=== PATIENT | male | born 1990 | race Caucasian/White ===

== ENCOUNTER 2017-09-17 21:50 | Observation (INO) | payer OTHER ==
[2017-09-17] MEDS ORDERED: ADRENALINE CHL INJ IVP ONE (21:51)
[2017-09-17] MEDS ORDERED: SOLU-Medrol 125 MG VIAL ONE (21:51)
[2017-09-17] MEDS ORDERED: ADRENALINE CHL INJ ONE (21:51)
[2017-09-17] MEDS ORDERED: SOLU-Medrol 125 MG VIAL IVP ONE (21:52)
[2017-09-17] MEDS ORDERED: ZANTAC INJ 50 MG in NS 50 ML IV 50 ML IV ONE (22:00)
[2017-09-17] MEDS ORDERED: BENADRYL INJ 50 MG VIAL IVP ONE (22:01)
[2017-09-17] MEDS ORDERED: ZANTAC INJ ONE (22:03)
--- NOTE | 2017-09-17 22:13 | DR.ALLERGY ---
HPI - Time Seen Time seen: 22:30 - HPI Comment HPI Comment: EMS reports that patient took a dose of his basilio augmentin and had an allergic reaction with shortness of breath and became cyanotic. Kristopher reports that patient went to bath room and started to take a shower after taking the augmentin and he fell backward in less than three minutes. His body was shaking all over, he was unresponsive to commands. This lasted approximately two to three minutes. Patient had bowel movement on himself x 2 according to spouse. Spousal history was taken some fifteen to twenty after arrival. Patient was not sure as to what had happened. He was pale upon arrival. History of EMS was patient had had an allergic reaction to augment. Patient was treated accordingly (epinephrine,ranitidine,solu medrol,benadryl) NS. After spousal history a CT of brain obtained; read as normal. He is being admitted for further evaluation due to first time seizure. PMH - Social History Lives With: Spouse Lives Where: Home ROS - Review of Systems Eyes: No Symptoms Reported ENTM: No Symptoms Reported Respiratoy: No Symptoms Reported Cardiovascular: No Symptoms Reported Gastrointestinal/Abdominal: No Symptoms Reported Genitourinary: No Symptoms Reported Neurological: No Symptoms Reported Musculoskeletal: No Symptoms Reported Integumentary: No Symptoms Reported Hematologic/Lymphatic: No Symptoms Reported Endocrine: No Symptoms Reported Psychiatric: No Symptoms Reported All Other Systems: Reviewed and Negative PE - Vitals Vital Signs: Temp Pulse Pulse Resp BP BP Pulse Ox 09/17/17 23:34 73 16 105/57 99 09/17/17 23:22 75 18 111/61 100 09/17/17 22:49 96.6 F L 99 H 22 149/63 99 09/17/17 22:30 67 16 117/68 98 09/17/17 22:20 67 16 111/64 97 09/17/17 22:10 74 18 116/62 98 09/17/17 22:04 80 16 113/58 99 - Constitutional General Appearance: Alert, Obtunded - Head Head Exam: Normal Inspection, Atraumatic - Eyes Eye exam: Normal Appearance, PERRL, EOMI - ENT ENT Exam: Normal Exam Mouth Exam: Normal Inspection, Drooling Throat Exam: Normal Inspection - Neck Neck Exam: Normal Inspection, Full ROM - Chest Chest Inspection: Normal Inspection - Respiratory Respiratory Exam: Normal Lung Sounds Bilat Respiratory Exam: Bilateral Clear to Auscultation - Cardiovascular Cardiovascular Exam: Regular Rate, Normal Rhythm - Abdominal Exam Abdominal Exam: Normal Inspection Abdominal Tenderness: negative: RUQ, RLQ, LUQ, LLQ, Epigastrium, Suprapubic, Diffuse, Mild, Moderate, Severe, Other - Extremities Extremities Exam: Normal Inspection, Full ROM - Back Back Exam: Normal Inspection, Full ROM - Neurologic Neurological Exam: Alert, Oriented X3, CN II-XII Intact - Psychiatric Psychiatric Exam: Normal Affect - Skin Skin Exam: Warm, Dry, Intact Type of Lesion: negative: Rash, Abscess, Laceration, Foreign Body, Bite/Sting, Abrasion, Other Course - Reevaluation 1st: Improved ROR - Labs Reviewed Result Diagrams: 09/17/17 23:32 09/17/17 23:32 - XRAY XRAY Interpreted by: Radiologist (CT Brain: There is no acute intracranial hemorrhage, mass or mass effect. No extra axial fluid collection or abnormal area of hypoattenuation identified. Ventricles and sulci are normal. ImpressinP No acute intracranial hemorrhage.) - Diagnosis Discharge Problem: Seizure - Discharge Plan Condition: Stable - Follow ups/Referrals Follow ups/Referrals: NFD,None [Primary Care Provider] - 3 days - Instructions
[2017-09-17] MEDS: NS 1000 ML 1,000 ML IV SCH (22:26)
--- NOTE | 2017-09-17 22:59 | CT ---
CT head without contrast Indication: New onset seizure. Technique: Axial images from the skullbase to the vertex without contrast. Coronal and sagittal ref ormats provided. Findings: Review of bone windows shows no osseous lesion. Paranasal sinuses and mastoid air cells a re clear. There is no acute intracranial hemorrhage, mass or mass effect. No extra-axial fluid collection or a bnormal area of hypoattenuation identified. Ventricles and sulci are normal. Impression: No acute intracranial hemorrhage Reported By:
[2017-09-17 23:56] LABS: BASOPHILS % (AUTO) 0.1 % (0.2-1.0); EOSINOPHILS # (AUTO) 0.1 x10^3/uL (0.0-0.2); EOSINOPHILS % (AUTO) 0.6 % (0.9-2.9); HEMATOCRIT 53.3 % (42.0-54.0); LYMPHOCYTES # (AUTO) 1.3 X10^3/uL (1.3-2.9); LYMPHOCYTES % (AUTO) 7.4 % (21.0-51.0); MEAN CORPUSCULAR HEMOGLOBIN 30.6 pg (27.0-34.0); MEAN CORPUSCULAR HGB CONC 33.8 g/dL (33.0-35.0); MEAN CORPUSCULAR VOLUME 90.7 fL (80.0-100.0); MEAN PLATELET VOLUME 8.7 fL (7.4-11.0); MONOCYTES # (AUTO) 0.6 x10^3/uL (0.3-0.8); MONOCYTES % (AUTO) 3.6 % (0.0-13.0); NEUTROPHILS # (AUTO) 15.7 x10^3/uL (2.2-4.8); NEUTROPHILS % (AUTO) 88.3 % (42.0-75.0); PLATELET COUNT 233 X10^3/uL (150.0-450.0); RED BLOOD COUNT 5.88 X10^6/uL (4.7-6.0); RED CELL DISTRIBUTION WIDTH 13.7 % (11.6-16.5); WHITE BLOOD COUNT 17.8 X10^3/uL (3.6-10.0)
[2017-09-17 23:57] LABS: BLOOD UREA NITROGEN 19 mg/dL (7-18); CALCIUM 7.9 mg/dL (8.5-10.1); CARBON DIOXIDE 27.9 mmol/L (21-32); CHLORIDE 105 mmol/L (98-107); CREATININE 1.06 mg/dL (0.70-1.30); SODIUM 143 mmol/L (136-145); eGFR BLACK RACES > 60 (>60); eGFR NON BLACK RACES > 60 (>60)
[2017-09-18 00:01] LABS: ALANINE AMINOTRANSFERASE 24 Units/L (12-78); ALBUMIN 3.4 g/dL (3.4-5.0); ALKALINE PHOSPHATASE 63 Units/L (46-116); ASPARTATE AMINO TRANSFERASE 22 Units/L (15-37); TOTAL PROTEIN 5.9 g/dL (6.4-8.2)
[2017-09-18] MEDS ORDERED: K-LYTE EFFERVESCENT PO ONE (00:11)
[2017-09-18] MEDS ORDERED: K-LYTE EFFERVESCENT ONE (00:16)
[2017-09-18] MEDS ORDERED: ATIVAN INJ 2 MG VIAL IVP PRN ×2 (02:24→05:36)
[2017-09-18 03:57] VITALS: BMI 24.1
[2017-09-18 04:48] LABS: BLOOD UREA NITROGEN 20 mg/dL (7-18); CARBON DIOXIDE 25.6 mmol/L (21-32); CHLORIDE 105 mmol/L (98-107); COR NA(FOR HYPERGLY) 140 mmol/L (136-145); CREATININE 0.84 mg/dL (0.70-1.30); SODIUM 139 mmol/L (136-145); eGFR BLACK RACES > 60 (>60); eGFR NON BLACK RACES > 60 (>60)
[2017-09-18] MEDS: NS 1000 ML 1,000 ML IV SCH (06:10)
--- NOTE | 2017-09-18 06:56 | RAD ---
HISTORY: New onset seizures and Study: Chest AP portable Comparison: None Findings: The heart is within normal limits in size. The johana are normal. The lungs are well inflated and free of acute infiltrates. The bony thorax is unremarkable. IMPRESSION: No significant abnormality identified Reported By:
[2017-09-18 07:01] LABS: BILIRUBIN,URINE NEGATIVE (NEGATIVE); BLOOD/HEMOGLOBIN,URINE NEGATIVE (NEGATIVE); GLUCOSE, URINE NEGATIVE (NEGATIVE); KETONES,URINE 2+ (NEGATIVE); LEUKOCYTE ESTERASE ,URINE NEGATIVE (NEGATIVE); NITRITES,URINE NEGATIVE (NEGATIVE); PROTEIN,URINE 1+ (NEGATIVE); UROBILINOGEN,URINE NORMAL (NORMAL)
[2017-09-18 07:09] LABS: APPEARANCE,URINE SLIGHTLY HAZY (CLEAR); COLOR,URINE DARK YELLOW (YELLOW); RBC,URINE NEGATIVE /HPF (NONE SEEN)
[2017-09-18 07:10] LABS: BACTERIA,URINE NEGATIVE /HPF (NEGATIVE); SQUAMOUS EPITHELIAL CELL,UR RARE /HPF (NEGATIVE)
[2017-09-18] MEDS ORDERED: ZITHROMAX INJ 500 MG VIAL 500 MG in NS 250 ML IV 250 ML IV SCH (09:30)
[2017-09-18 12:16] VITALS: BP 105/63
== END 2017-09-18 13:00 | disposition home or self-care (01) ==
LOC: ER 21:50 → OBS 09-18 02:22
PROVIDERS: ADMIT Internal Medicine; ATTEND Internal Medicine
DX: R56.9 Unspecified convulsions (principal); J06.9 Acute upper respiratory infection, unspecified; J40 Bronchitis, not specified as acute or chronic; R94.31 Abnormal electrocardiogram [ECG] [EKG]
CPT/HCPCS: 36415; 70450; 71045; 80048; 80053; 81001; 85025; 93005; 93010; 93041; 96365; 96367; 96374; 96375; 99284; 99285; A4222; G0378; J0170; J0456; J1200; J2780; J2930